=== PATIENT | male | born 1980 | race Caucasian/White ===

== ENCOUNTER 2018-06-18 14:05 | Emergency (ER) | payer OTHER ==
[~2018-06-18] VITALS: Ht 175.3 cm; Wt 90.7 kg
[2018-06-18 14:10] VITALS: BP_SYST 138
--- NOTE | 2018-06-18 14:15 | NUR ---
Ambulatory to bed 2
--- NOTE | 2018-06-18 14:20 | NUR ---
PATIENT CAME IN COMPLAINING OF PAIN IN RIGHT LEG THAT STARTED YESTERDAY. PATIENT STATED HE SLEPT WRONG. PATIENT SAID HE WENT TO [facility] YESTERDAY AND THEY TOOK X RAYS AND SAW NO FX. PATIENT WAS GIVEN FLEXERIL BUT SAID IT DOES NOT WORK. PATIENT ALERT AND ORIENTED X4. PATIENT NOT COMPLAINING OF SOB, NAUSEA, OR VOMITING.
[2018-06-18] MEDS ORDERED: KETOROLAC TROMETHAMINE 60 MG/2 ML VIAL IM ONE (14:30)
[2018-06-18] MEDS ORDERED: DEXAMETHASONE SOD PHOSPHATE 10 MG/ML VIAL IM ONE (14:30)
--- NOTE | 2018-06-18 14:43 | NUR ---
TABATHA majano examining patient.
--- NOTE | 2018-06-18 15:32 | NUR ---
Patient given written and verbal discharge instructions and verbalizes understanding. ER MD discussed with patient the results and treatment provided. Patient in stable condition. ID arm band removed. Rx of MOTRIN, TRAMADOL, AND MEDROL given. Patient educated on pain management and to follow up with PMD. Pain Scale 0/10. Opportunity for questions provided and answered. Medication side effect fact sheet provided.
[2018-06-18 15:36] VITALS: BP_SYST 138
== END 2018-06-18 15:32 | disposition home or self-care (01) ==
LOC: SED 14:05
DX: M54.30 Sciatica, unspecified side (principal); R03.0 Elevated blood-pressure reading, without diagnosis of hypertension
CPT/HCPCS: 96372; 99283; J1100; J1885